=== PATIENT | female | born 1985 | race Caucasian/White ===

== ENCOUNTER 2018-06-07 08:00 | Emergency (ER) | payer OTHER ==
[~2018-06-07] VITALS: Ht 160 cm; Wt 101.6 kg
[2018-06-07 08:11] VITALS: BP 115/67
--- NOTE | 2018-06-07 08:19 | NUR ---
PATIENT AMBULATED TO BED 5 AT THIS TIME.
--- NOTE | 2018-06-07 08:20 | NUR ---
32/F BIB SELF C/O COUGH, MARBIN EARS PAIN & SORE THROAT X 5 DAYS. DENIES N/V/D; SKIN IS PINK/WARM/DRY; AAOX4 WITH EVEN AND STEADY GAIT; LUNGS CLEAR BL; HR EVEN AND REGULAR; PT DENIES ANY FEVER OR CP AT THIS TIME; PATIENT STATES PAIN OF 0/10 AT THIS TIME. PATIENT POSITIONED FOR COMFORT; HOB ELEVATED; BEDRAILS UP X2; BED DOWN. ER MD MADE AWARE OF PT STATUS.
--- NOTE | 2018-06-07 08:37 | NUR ---
Patient being evaluated by DR BALDWIN at bedside.
[2018-06-07 08:40] VITALS: BP 115/67
--- NOTE | 2018-06-07 08:40 | NUR ---
Patient discharged with v/s stable. Written and verbal after care instructions given and explained. Patient alert, oriented and verbalized understanding of instructions. Ambulatory with steady gait. All questions addressed prior to discharge. ID band removed. Patient advised to follow up with PMD. Rx of TESSALON & CLARITIN given. Patient educated on indication of medication including possible reaction and side effects. Opportunity to ask questions provided and answered.
== END 2018-06-07 08:40 | disposition home or self-care (01) ==
LOC: EDBD 08:00 → MED 08:00
DX: J40 Bronchitis, not specified as acute or chronic (principal)
CPT/HCPCS: 99283